=== PATIENT | female | born 1975 | race Caucasian/White ===

== ENCOUNTER 2019-10-17 09:57 | Emergency (ER) | payer OTHER, SELFPAY ==
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
[2019-10-17 10:10] VITALS: BP 117/75; PULSE 74; RESP 14; TEMP 36.6; O2SAT 99
--- NOTE | 2019-10-17 10:27 | ED.WOUNDLAC ---
HPI - Wound/Laceration General Chief Complaint: Wound/Laceration Stated Complaint: 44YO female w/ left hand puncture wound while she was cleaning, she accidentally stuck herself. Here for eval. Related Data Home Medications Medication Instructions Recorded Confirmed No Home Medications 05/09/19 05/09/19 Allergies Allergy/AdvReac Type Severity Reaction Status Date / Time No Known Allergies Allergy Verified 05/09/19 11:26 Review of Systems Review of Systems: All systems reviewed & are unremarkable except as noted in HPI and below Constitutional: Constitutional: Reports as per HPI Cardiovascular: Cardiovascular: Reports as per HPI and Reports no additional cardiovascular complaints Respiratory: Respiratory: Reports as per HPI and Reports no additional respiratory complaints Gastrointestinal: Gastrointestinal: Reports as per HPI and Reports no additional gastrointestinal complaints Musculoskeletal: Musculoskeletal: Reports no additional musculoskeletal complaints and Reports as per HPI Integumentary/Breasts: Skin/Breast: Reports as per HPI Neurologic: Reports system reviewed and no additional complaints, except as documented Psychiatric: Psychiatric: Reports no additional psychiatric complaints [facility] Past Medical History Medical History Chronic back pain Migraines Exam Resp: Effort & Inspection: normal respiratory effort Auscultation: clear to auscultation bilaterally Cardio: Rate: regular rate Rhythm: regular rhythm GI: GI Palp: Yes Soft to palpation and No Tenderness to palpation present (GI) Skin: Wounds: wounds noted (Left Hand puncture wound) puncture wound left dorsal thumb size (1/2cm) and without odor Neuro: General: patient oriented x3, moves all extremities, no focal motor deficits and CN's II-XI intact bilaterally Extrem: General: normal to inspection Other: From to flexion, extension, opposition, adduction and abduction of all fingers Psych: Mental Status: mental status grossly normal Course Course Emergency Course: Dermabond to Puncture wound Vital Signs Vital signs: Vital Signs Temperature 97.8 F 10/17/19 10:10 Pulse Rate 74 10/17/19 10:10 Respiratory Rate 10/17/19 10:10 Blood Pressure 117/75 10/17/19 10:10 Pulse Oximetry 99 10/17/19 10:10 Temperature 97.8 F 10/17/19 10:10 Pulse Rate 74 10/17/19 10:10 Respiratory Rate 14 10/17/19 10:10 Blood Pressure 117/75 10/17/19 10:10 Pulse Oximetry 99 10/17/19 10:10 Procedures Laceration Laceration 1: Date: 10/17/19 Time: 10:33 Site: hand Side (If applicable): left Size (cm): 0.5 Description: linear Depth: simple, single layer ====== Skin Level ====== Skin layer closed with: dermabond ====== Subcutaneous Layer ====== ====== Muscle Layer ====== ====== Tendon Layer ====== MDM - Wound/Laceration Differential Diagnosis Differential diagnosis: Likely laceration Medical Records Attestation: I reviewed the patient's medical records. Critical Care Time Critical Care Time Critical Care Time: No Discharge Plan Discharge Clinical Impression: Puncture wound of left hand without complication Qualifiers: Encounter type: initial encounter Qualified Code(s): S61.432A - Puncture wound without foreign body of left hand, initial encounter Patient Disposition: Home, Self-Care Condition: Improved Instructions: Antibiotic Form, Puncture Wound (ED) Additional Instructions: Dermabond instructions explained to patient. No getting wound wet for 48 hours Prescriptions: No Action No Home Medications RF: 0 Follow-up/Referrals: UNKNOWN,DOCTOR [Primary Care Provider] - Time of Disposition: 10:35
== END 2019-10-17 11:03 | disposition home or self-care (01) ==
PROVIDERS: Emergency Provider Family Medicine
DX: S61.432A Puncture wound without foreign body of left hand, initial encounter (principal); W45.8XXA Other foreign body or object entering through skin, initial encounter
CPT/HCPCS: 12001; 99282

== ENCOUNTER 2019-10-19 02:02 | Emergency (ER) | payer OTHER, SELFPAY ==
[2019-10-19 02:08] VITALS: BP 113/78; PULSE 70; RESP 18; TEMP 36.3; O2SAT 99
--- NOTE | 2019-10-19 02:27 | ED.GENADULT ---
HPI - General Adult General Chief complaint: Allergic Reaction Stated complaint: Poss Allergic Reaction Source: patient Mode of arrival: ambulatory Limitations: no limitations History of Present Illness HPI narrative: Itching over entire body, onset 9 PM yesterday (6 hours ago). Denies rash, swelling of lips/tongue/throat, nausea/vomiting/abd. pain, lightheadedness. Started cephalexin 7/4 AM after puncture wound to the left hand. See note. C/o tenderness near puncture sight, not worsening. Related Data Home Medications Medication Instructions Recorded Confirmed diclofenac potassium 25 mg PO BID PRN 10/17/19 10/19/19 Allergies Allergy/AdvReac Type Severity Reaction Status Date / Time cephalexin Allergy Itching Verified 10/19/19 02:23 Review of Systems Constitutional: Constitutional: Denies chills and Denies fever(s) [facility] Past Medical History Medical History Chronic back pain Migraines Exam Narrative: Exam Narrative: Frequent scratching all over her body Const: Orientation/consciousness: patient oriented x3 Eyes: Conjunctivae: conjunctivae normal Resp: Auscultation: clear to auscultation bilaterally Skin: Rashes: no rashes Other: no excoriations Extrem: General: normal to inspection Left upper extremity: hand tenderness (left thumb-index web space. ) and puncture wound (puncture wound left posterior lateral hand. Tender. Not red. No d.c.) Psych: Mental Status: mental status grossly normal Course Course Emergency Course: pt felt improvement within minutes of receiving diphenhydramine and prednisone Vital Signs Vital signs: Vital Signs Temperature 36.3 C L 10/19/19 02:08 Pulse Rate 70 10/19/19 02:08 Respiratory Rate 18 10/19/19 02:08 Blood Pressure 113/78 10/19/19 02:08 Pulse Oximetry 99 10/19/19 02:08 Temperature 36.6 C 10/19/19 03:00 Pulse Rate 57 L 10/19/19 03:00 Respiratory Rate 18 10/19/19 03:00 Blood Pressure 111/71 10/19/19 03:00 Pulse Oximetry 100 10/19/19 03:00 Medical Decision Making MDM Narrative Medical decision making narrative: Adverse reaction - itching - to cephalexin. No evidence of allergic reaction. No evidence of hand infection secondary to puncture wound. Stop cephalexin, start clindamycin x 2 days in order to get 5 days of hand wound infection prophylaxis. Vital Signs Vital Signs: Vital Signs Temperature 36.3 C L 10/19/19 02:08 Pulse Rate 70 10/19/19 02:08 Respiratory Rate 18 10/19/19 02:08 Blood Pressure 113/78 10/19/19 02:08 Pulse Oximetry 99 10/19/19 02:08 Temperature 36.6 C 10/19/19 03:00 Pulse Rate 57 L 10/19/19 03:00 Respiratory Rate 18 10/19/19 03:00 Blood Pressure 111/71 10/19/19 03:00 Pulse Oximetry 100 10/19/19 03:00 Discharge Plan Discharge Clinical Impression: Pruritus Adverse effect of drug that acts primarily on skin Qualifiers: Encounter type: initial encounter Qualified Code(s): T49.95XA - Adverse effect of unspecified topical agent, initial encounter Patient Disposition: Home, Self-Care Condition: Stable Instructions: Antibiotic Form, Adverse Drug Reaction (ED) Additional Instructions: Stop cephalexin. Take clindamycin as directed on bottle until gone. Take hydroxyzine 10 mg 1 - 2 every 6 hours if needed for itching. Follow up with primary care doctor to recheck rash and left hand 10/20/19 with primary care doctor. Blow fan on skin or apply wet cool washcloth to itching skin as needed. Prescriptions: New clindamycin HCl 300 mg capsule 300 mg PO Q6H Qty: 6 RF: 0 hydroxyzine HCl 10 mg tablet 20 mg PO QID PRN (Reason: itching) Qty: 20 RF: 0 clindamycin HCl 300 mg capsule 300 mg PO Q6H Qty: 8 RF: 0 No Action diclofenac potassium 25 mg Capsule 25 mg PO BID PRN (Reason: Back Pain) RF: 0 cephalexin [Keflex] 500 mg capsule 500 mg PO Q8H Qty: 30 RF: 0 Follow-up/Ref
[2019-10-19] MEDS: CLINDAMYCIN HCL 150 MG CAP 300 MG PO (02:58)
[2019-10-19] MEDS: predniSONE 20 MG TABLET 40 MG PO (02:59)
[2019-10-19 03:00] VITALS: BP 111/71; PULSE 57; RESP 18; TEMP 36.6; O2SAT 100
== END 2019-10-19 03:05 | disposition home or self-care (01) ==
PROVIDERS: Emergency Provider Family Medicine
DX: L29.9 Pruritus, unspecified (principal); T49.95XA Adverse effect of unspecified topical agent, initial encounter
CPT/HCPCS: 99283; A9270; J7512

== ENCOUNTER 2020-09-27 07:39 | Outpatient (CLI) | payer OTHER, SELFPAY ==
--- NOTE | ~2020-09-27 | MR_ITS ---
EXAMINATION: MR lumbar spine wo [facility] EXAM DATE: 09/27/2020 09:03 INDICATION: Low back pain, bilateral foot swelling. TECHNIQUE: Multi-sequential, multiplanar MR images of the lumbar spine were obtained without contrast . Sagittal T1, T2, T2 fat saturation images. Axial T2 weighted images. There is no prior study for comparison. FINDINGS: Mild lumbar levoscoliosis. There is mild disc disease L2-3 and L4-5. The vertebral bodies a re aligned in the AP dimension. No spondylolysis. The conus medullaris terminates at the L1/2 level a nd has normal signal intensity and morphology. There are several small vertebral body hemangiomas. P araspinal soft tissue is unremarkable. Level by level evaluation: T12-L1: Disc does not extend beyond the endplate margin. Facet arthropathy: None. Neural foraminal stenosis: No stenosis. Central canal stenosis: No stenosis. L1-L2: Disc does not extend beyond the endplate margin. Facet arthropathy: None. Neural foraminal stenosis: No stenosis. Central canal stenosis: No stenosis. L2-L3: There is a mild diffuse disc bulge. Facet arthropathy: Mild. Neural foraminal stenosis: No stenosis. Central canal stenosis: No stenosis. L3-L4: Disc does not extend beyond the endplate margin. Facet arthropathy: Mild. Neural foraminal stenosis: No stenosis. Central canal stenosis: No stenosis. L4-L5: There is a mild to moderate diffuse disc bulge, far left annular fissure. Facet arthropathy: Mild. Neural foraminal stenosis: Mild to moderate bilateral, with left nerve root extending through the mos t narrowed portion of neural foramina. Central canal stenosis: Minimal. L5-S1: Disc does not extend beyond the endplate margin. Facet arthropathy: Mild. Neural foraminal stenosis: No stenosis. Central canal stenosis: No stenosis. IMPRESSION: 1. Mild lumbar levoscoliosis. 2. L4-5 mild to moderate neural foraminal stenosis. Reviewed, dictated and finalized at location B.
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
--- NOTE | ~2020-09-27 | MR_ITS ---
EXAMINATION: MR cervical spine wo con EXAM DATE: 09/27/2020 09:02 INDICATION: Cervical radiculopathy, neck pain, limited range of motion. TECHNIQUE: Multi-sequential, multiplanar MR images of the cervical spine were obtained without contra st. Axial T2, axial T2 MERGE sequence. Sagittal T1, T2, T2 fat saturation images also obtained. Th ere is no prior study for comparison. FINDINGS: The vertebral bodies are aligned in the AP dimension. Vertebral body and disc heights are well-maintained. The spinal cord signal intensity and intrinsic morphology is normal. Cervicomedullar y junction is normal in appearance. There are no suspicious marrow signal abnormalities. Paraspinal s oft tissue is unremarkable. Level by level evaluation: C2-C3: Disc does not extend beyond the endplate margin. Uncovertebral joint arthropathy: None. Facet joint arthropathy: None. Neural foraminal stenosis: No stenosis. Central canal stenosis: No stenosis. C3-C4: Disc does not extend beyond the endplate margin. Uncovertebral joint arthropathy: None. Facet joint arthropathy: Mild. Neural foraminal stenosis: No stenosis. Central canal stenosis: No stenosis. C4-C5: Disc does not extend beyond the endplate margin. Uncovertebral joint arthropathy: Mild left. Facet joint arthropathy: Mild bilateral. Neural foraminal stenosis: No stenosis. Central canal stenosis: No stenosis. C5-C6: There is a minimal diffuse disc bulge. Uncovertebral joint arthropathy: Mild bilateral. Facet joint arthropathy: Mild bilateral. Neural foraminal stenosis: No stenosis. Central canal stenosis: No stenosis. C6-C7: Disc does not extend beyond the endplate margin. Uncovertebral joint arthropathy: None. Facet joint arthropathy: None. Neural foraminal stenosis: No stenosis. Central canal stenosis: No stenosis. C7-T1: Disc does not extend beyond the endplate margin. Uncovertebral joint arthropathy: None. Facet joint arthropathy: None. Neural foraminal stenosis: No stenosis. Central canal stenosis: No stenosis. IMPRESSION: 1. Mild mid cervical spondylosis without stenosis. Reviewed, dictated and finalized at location B.
== END 2020-09-27 07:40 ==
PROVIDERS: Visit Provider Nurse Practitioner Family
DX: M47.816 Spondylosis without myelopathy or radiculopathy, lumbar region (principal); M48.061 Spinal stenosis, lumbar region without neurogenic claudication; M41.9 Scoliosis, unspecified; M47.22 Other spondylosis with radiculopathy, cervical region; M48.02 Spinal stenosis, cervical region; R51.9 Headache, unspecified
CPT/HCPCS: 70551; 72141; 72148

== ENCOUNTER 2022-06-13 03:22 | Emergency (ER) | payer SELFPAY ==
--- NOTE | ~2022-06-13 | CT_ITS ---
Non-contrast CT scan of the Abdomen and Pelvis Clinical indication: Abdominal pain Technique: 2.5 mm axial scans were obtained through the abdomen and pelvis without intravenous or or al contrast. Dose reduction technique was used on this scan by utilizing automated exposure control a nd iterative reconstruction technique. The dose-length product (DLP) was 204.06 mGy-cm. COMPARISON: 11/30/2015 Findings: Images through the lung bases reveal no abnormalities. There is no evidence of renal or ureteral calculi. The kidneys and the ureters are nondilated. The liver, spleen, pancreas, gallbladder, and adrenals appear normal. There is no aortic aneurysm. There is no evidence of bowel obstruction. Images through the pelvis were performed. There is no evidence of ascites or lymphadenopathy. Urinary bladder unremarkable. No adnexal mass evident. No ascites. Impression: No significant abnormality seen. Reviewed, dictated and finalized at [facility]. CLEANER Impression: No significant abnormality seen.
[2022-06-13 03:27] VITALS: BP 149/86; PULSE 60; RESP 20; TEMP 36.8; O2SAT 100
[2022-06-13 03:50] LABS: Basophils Absolute Auto 0.08 K/mm3 (0.00-0.10); Basophils Percent Auto 0.9 % (0.0-1.0); Eosinophils Absolute Auto 0.22 K/mm3 (0.02-0.50); Eosinophils Percent Auto 2.5 % (1.0-6.0); Hematocrit 41.5 % (35.0-49.0); Hemoglobin 14.1 g/dL (12.0-15.0); Immature Granulocyte Absolute 0.02 K/mm3 (0.00-0.00); Immature Granulocyte Percent A 0.2 % (0.0-0.0); Lymphocytes Absolute Auto 2.43 K/mm3 (1.10-4.50); Lymphocytes Percent Auto 27.5 % (18.0-42.0); Mean Corpuscular Hemoglobin 33.3 pg (27.0-31.0); Mean Corpuscular Volume 97.9 fL (78.0-102.0); Mean Platelet Volume 9.9 fl (9.2-11.8); Monocytes Absolute Auto 0.57 K/mm3 (0.10-0.90); Monocytes Percent Auto 6.5 % (2.0-11.0); Neutrophils Absolute Auto 5.5 K/mm3 (1.7-7.2); Neutrophils Percent Auto 62.4 % (50.0-70.0); Platelet Count Result 274 K/mm3 (150-420); Red Blood Count 4.24 M/mm3 (4.20-5.40); Red Cell Distribution Width 11.6 % (11.6-14.4); White Blood Count 8.8 K/mm3 (4.8-10.8)
[2022-06-13 03:51] LABS: Appearance Urine Clear (Clear); Bilirubin Urine Negative (Negative); Blood Urine Trace-Intact (Negative); Color Urine Light Yellow (Yellow); Glucose Urine UA Negative (Negative); Ketones Urine Negative (Negative); Leukocyte Esterase Ur Trace LEU/UL (Negative); Nitrate Urine Negative (Negative); Protein Urine Negative (Negative); Specific Grav Ur >= 1.030 (1.010-1.020); Urobilinogen Urine 0.2 mg/dL (0.2-1.0); pH Urine 5.5 (5.0-8.0)
[2022-06-13 03:57] LABS: Add Urine Microscopic? YES
[2022-06-13 03:58] LABS: Bacteria Urine 1+ /hpf; Pregnancy On Board Control Positive; Squamous Epithelial Cell Urine Many /hpf (Few); Urine Pregnancy Test Negative; WBC Urine 0-3 /hpf (0-3)
[2022-06-13 04:08] LABS: Alanine Aminotransferase 33 U/L (14-59); Albumin Level 3.9 g/dL (3.4-5.0); Alkaline Phosphatase 43 U/L (46-116); Anion Gap 9 mmol/L (8-16); Aspartate Amino Transferase 33 U/L (15-37); Bilirubin,Total 0.2 mg/dL (0.00-1.00); Blood Urea Nitrogen 15 mg/dL (7-18); Calcium 8.9 mg/dL (8.5-10.1); Carbon Dioxide 26 mmol/L (21-32); Chloride 104 mmol/L (98-108); Estimated CRCL calculation 57 ml/min; Estimated Glomerular Filt Rate > 60; Glucose 93 mg/dL (70-99); Osmolality Calculated 288 mOsm/kg (285-295); Sodium 139 mmol/L (136-145); Total Protein 7.6 g/dL (6.4-8.2)
--- NOTE | 2022-06-13 04:42 | PC.NURSE ---
Pt sleeping, awaiting CT scan results, no pain noted, resting comfortably, TV on, call hassan at pt side.
--- NOTE | 2022-06-13 05:15 | ED.ABDPAIN ---
HPI - Abdominal Pain General Chief Complaint: Abdominal Pain Stated Complaint: Abdominal Pain Time Seen by Provider: 06/13/22 05:15 Source: patient and RN notes reviewed Mode of arrival: ambulatory Limitations: no limitations History of Present Illness HPI narrative: patient states that she has been using laxatives on all for the last 10 years. The last 3 weeks she has been having some abdominal pain. It is intermittent she has been taking laxatives but they do not seem to be working. She said she took 3 laxatives the other day and feels like maybe she had some bowel movement but she still having pain. She has tried MiraLax in the past but she does not like the flavor. Makes her nauseous and then she will not take it. She denies any fever chills. She denies any nausea vomiting. She says she is just tired of the pain. MD elicited complaint: abdominal pain Pertinent past history: constipation Onset (ago): month(s) (3) Pain Consistency: intermittent Location: diffuse Severity: moderate Quality: cramping Radiation: none Migration to: no migration Exacerbating factors: eating Relieving factors: nothing Related Data Allergies Allergy/AdvReac Type Severity Reaction Status Date / Time cephalexin Allergy Itching Verified 10/19/19 02:23 Review of Systems Review of Systems: All systems reviewed & are unremarkable except as noted in HPI and below PMFSH Past Medical History Medical History (Updated 06/13/22 @ 05:36 by Radhames Waterman MD) Chronic back pain Migraines Surgical History Surgical History (Updated 06/13/22 @ 05:33 by Radhames Waterman MD) History of appendectomy Exam Const: General: healthy appearing, no acute distress and alert Nutritional Appearance: well nourished and thin Orientation/consciousness: patient oriented x3 Limitations: no limitations HENMT: Head: normal to inspection Ears: external ears normal Face/Nose/Sinus: Normal external nose present Face and sinus: normal facial exam Mouth: Yes moist mucous membranes Eyes: Conjunctivae: conjunctivae normal Pupils: Equal, round and reactive pupils present EOM: EOMs intact bilaterally Neck: Neck: normal visual inspection Resp: Effort & Inspection: normal respiratory effort Auscultation: clear to auscultation bilaterally Cardio: Rate: regular rate Rhythm: regular rhythm GI: GI Palp: Yes Soft to palpation, Yes Tenderness to palpation present (GI) ( Moderate diffusely.), Yes Guarding due to palpation present (GI) ( Mild diffusely) and No Rebound tenderness present Auscultation: normal bowel sounds Back/Spine/Pelvis: Cervical Spine: cervical ROM normal Thoracic/Lumbar Spine: thoraco-lumbar ROM normal Skin: General skin exam: normal color Rashes: no rashes Neuro: General: patient oriented x3, moves all extremities, no focal motor deficits and CN's II-XI intact bilaterally Speech: normal speech Gait exam (Neuro): Normal gait present Extrem: General: normal to inspection and no clubbing, cyanosis or edema Psych: Mental Status: mental status grossly normal Affect: normal affect Attitude: cooperative Course Vital Signs Vital signs: Vital Signs Temperature 36.8 C 06/13/22 03:27 Pulse Rate 60 06/13/22 03:27 Respiratory Rate 20 06/13/22 03:27 Blood Pressure 149/86 H 06/13/22 03:27 Pulse Oximetry 100 06/13/22 03:27 Oxygen Delivery Room Air 06/13/22 03:27 Temperature 36.6 C 06/13/22 05:44 Pulse Rate 87 06/13/22 05:44 Respiratory Rate 20 06/13/22 05:44 Blood Pressure 132/74 06/13/22 05:44 Pulse Oximetry 98 06/13/22 05:44 Oxygen Delivery Room Air 06/13/22 05:44 MDM - Abdominal Pain MDM Narrative Medical decision making narrative: 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 Differential Diagnosis Differential diagnosis: Likely abdominal pain, calculus of kidney, constipation, diverticulitis, gastroenteritis, small bowel obstruction and other (IBS) Lab Data
--- NOTE | 2022-06-13 05:24 | PC.NURSE ---
Assisted dr with pt exam
[2022-06-13 05:44] VITALS: BP 132/74; PULSE 87; RESP 20; TEMP 36.6; O2SAT 98
== END 2022-06-13 05:47 | disposition home or self-care (01) ==
PROVIDERS: Emergency Provider Emergency Medicine
DX: K59.03 Drug induced constipation (principal); F55.2 Abuse of laxatives
CPT/HCPCS: 36415; 74176; 80053; 81001; 81025; 85025; 99284

== ENCOUNTER 2023-06-23 21:42 | Emergency (ER) | payer OTHER, SELFPAY ==
--- NOTE | ~2023-06-23 | CT_ITS ---
EXAMINATION: CT cervical spine wo con DATE: 06/23/2023 21:57 INDICATION: Neck pain. TECHNIQUE: Computed tomography (CT) of the cervical spine was performed without intravenous contrast. Automated exposure control and iterative reconstruction technique were employed. The dose-length pro duct was 128.11 mGy-cm. COMPARISON: None FINDINGS: There is 4 degrees dextrocurvature of cervical spine. Vertebral body heights and interverte bral disc heights are normal. The following disc levels are specifically discussed: C2-C3 through C6-C7: There is no uncovertebral joint osteoarthritis. There is no facet joint osteoart hritis. There is no neural foraminal stenosis. There is no central canal stenosis. C7-T1: There is no uncovertebral joint osteoarthritis. There is mild bilateral facet joint osteoarthr itis. There is no neural foraminal stenosis. There is no central canal stenosis. IMPRESSION: 1. 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 Reviewed, dictated and finalized at location E.
[2023-06-23 21:49] VITALS: BP 153/98; PULSE 113; RESP 20; TEMP 36.6; O2SAT 98
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
[2023-06-23] MEDS: KETOROLAC 30 MG/ML VIAL (*BKC) IM (22:00)
[2023-06-23] MEDS: CYCLOBENZAPRINE HCL 10 MG TABLET PO (22:00)
[2023-06-23 22:42] VITALS: BP 128/83; PULSE 83; RESP 20; TEMP 37.5; O2SAT 100
== END 2023-06-23 22:42 | disposition home or self-care (01) ==
PROVIDERS: Emergency Provider Family Medicine
DX: M62.830 Muscle spasm of back (principal); G89.29 Other chronic pain
CPT/HCPCS: 72125; 96372; 99284; A9270; J1885

== ENCOUNTER 2024-11-07 08:50 | Emergency (ER) | payer OTHER, SELFPAY ==
[2024-11-07 08:50] VITALS: BP 143/86; PULSE 74; RESP 14; TEMP 36.9; O2SAT 99
--- OUTSIDE RECORDS SUMMARY | 2024-11-07 08:58 | XMS_ITS | Clinical Summary ---
Author Organization [facility] Address [address] [place] [address] Phone Care Team Providers Care Stockroom Worker Name Role Phone Susan Huffman APRN, HUNTER Primary Care P rojacielder Allergies Active Allergy Reactions Criticality Noted Date Comments Penicillin G Unknown 04/02/2019 Medications diclofenac (VOLTAREN) 50 MG Tablet Delayed Response Take 1 Tab by mouth 3 times daily. 270 Tab 9 Active Additional Information Patient not taking.Reported on 04/17/2019 propranolol (INDERAL) 40 MG Tablet 9 Active SUMAtriptan (IMITREX) 50 MG Tablet 9 Active meclizine (ANTIVERT) 25 MG Tablet Take 25 mg by mouth 3 times daily as needed. Active ondansetron (ZOFRAN-ODT) 4 MG TABLET DISPERSIBLE Take 4 mg by mouth every 8 hours as needed. Active topiramate (TOPAMAX) 25 MG Tablet Start 1 tab PO q am x 7 days, then 1 tab PO 2 times daily 120 Tab 3 0 Active Additional Information Patient not taking.Reported on 07/17/2019 ondansetron (ZOFRAN) 8 MG Tablet Take 1 Tab by mouth every 8 hours as needed for Nausea - 1st line. 30 Tab 0 Active Additional Information Patient not taking.Reported on 04/27/2020 methylPREDNISolo ne (MEDROL DOSPACK) 4 MG Tablet Therapy Pack See product package insert for dosing schedule 21 Tab 1 Active Active Problems Problem Noted Date Diagnosed Date Migraine with aura and with status migrainosus, not intractable 04/17/2019 Vertigo 04/17/2019 Family History Medical History Relation Name Comments Colon Cancer Brother Diabetes Brother Colon Cancer Paternal Grandmother Relation Name Status Comments Brother Paternal Grandmother Social History Tobacco Use Types Packs/Day Years Used Date Smoking Tobacco: Every Day Cigarettes Smokeless Tobacco: Never Tobacco Cessation:Ready to Q uit: No Alcohol Use Standard Drinks/Week Comments Not Currently 0 (1 standard drink = 0.6 oz pur e alcohol) Comments No Sex and Gender Information Value Date Recorded Sex Assigned at Not on file Legal Sex Female 12:37 AM CDT Gender Identity Not on file Sexual Orientation Not on file Last Filed Vital Signs Vital Sign Reading Time Taken Comments Blood Pressure 127/81 04/27/2020 4:15 AM RESIDENTIAL LAWN SPECIALIST Pulse 56 04/27/2020 4:29 AM RESIDENTIAL LAWN SPECIALIST Temperature 36.3 C (97.4 F) 04/27/2020 3:28 AM RESIDENTIAL LAWN SPECIALIST Respiratory Rate 16 04/27/2020 3:28 AM RESIDENTIAL LAWN SPECIALIST Oxygen Saturation 98% 04/27/2020 4:29 AM RESIDENTIAL LAWN SPECIALIST Inhaled Oxygen Concentration - - Weight 62.6 kg (138 lb) 04/27/2020 3:28 AM RESIDENTIAL LAWN SPECIALIST Height 160 cm (5' 3) 04/27/2020 3:28 AM RESIDENTIAL LAWN SPECIALIST Body Mass Index 24.45 04/27/2020 3:28 AM RESIDENTIAL LAWN SPECIALIST Plan of Treatment Health Maintenance Due Date Last Done Comments Hepatitis C Virus (HCV) Screening 1976 TdaP Immunization 1976 Hepatitis B Immunization (1 of 3 - 19+ 3-dose series) 07/09/1995 Pap Smear 1997 Cervical Cancer Screening (CCS) 2006 HPV/Cotest 2006 Cologuard 2021 Colonoscopy 2021 Colorectal Cancer Screening 2021 Immunochemical Fecal Occult Blood 2021 SARS-COV-2 Immunization (2023- season) 2023 Mammogram 11/05/2024 11/06/2023, 06/13, 06/11/2017 Influenza Immunization (#1) 2024 Respiratory Syncytial Virus (RSV) Immunization (Adult) (1 - 1-dose 75+ series) 07/09/2051 Discussion re Starting/Frequency of Mammograms Completed 04/10/2024, 11/06/2023, 06/27/2020, Additional history exists Human Papillomavirus (HPV) Immunization Aged Out No longer eligible based on patient's age to complete this topic Meningococcal Immunization (ACWY) Aged Out No longer eligible based on patient's age to complete this topic Pneumococcal Immunization Combined Aged Out No longer eligible based on patient's age to complete this topic Rotavirus Immunization Aged Out No lo nger eligible based on patient's age to complete this topic Procedures Procedure Name Priority Date/Time Associated Diagnosis Comments DANIE DIAG LEFT UNILATERAL DIGITAL W CAD W REGIS Routine 04/10/2024 8:44 AM RESIDENTIAL LAWN SPECIALIST Abnormal mammogram DANIE SCREENING BILATERAL DIGITAL W CAD W REGIS Routine 11/06/2023 8:41 AM CDT Visit for screening mammogram from Last 3 Months or Most Recently Relevant to Health Maintenance Results * DANIE DIAG LEFT UNILATERAL DIGITAL W CAD W REGIS (04/10/2024 8:44 AM RESIDENTIAL LAWN SPECIALIST) Anatomical Region Laterality Modality breast Left Mammography 04/10/2024 8:03 AM RESIDENTIAL LAWN SPECIALIST Narrative 04/10/2024 10:21 AM RESIDENTIAL LAWN SPECIALIST - DANIE DIAG LEFT UNILATERAL DIGITAL W CAD W REGIS UNILATERAL LEFT DIGITAL DIAGNOSTIC MAMMOGRAM 3D/2D WITH CAD WITH MEDIOLATERAL MEDIOLATERAL OBLIQUE CRANIOCAUDAL SPOT COMPRESSION: 04/10/2024 The study was acquired using digital technology and interpreted from soft copy. Current study was also evaluated with ICAD version 7.2. 2D digital mammographic views, as well as 3D digital tomosynthesis were performed in the CC and MLO projections. CLINICAL: Diagnostic study. Patient returns to evaluate an asymmetry in the left breast seen on the MLO view only; screening 11/06/23. COMPARISONS: Comparison is made to exams dated: 11/06/2023, 06/27/2020, and 06/11/2017 [facility]. BREAST TISSUE:The breasts are heterogeneously dense, which may obscure small masses. FINDINGS: No persistent asymmetry is seen in the subareolar left breast on the additional views. No significant masses, calcifications, or other findings are seen in the breast. IMPRESSION: NEGATIVE There is no mammographic evidence of malignancy. Return to annual screening mammography schedule is recommended. The patient will be due for a bilateral screening mammogram in October 2024. The results and recommendations were discussed with the patient. Electronically signed by: Mi Ortiz M.D. ll/:04/10/2024 08:43:52 Web Site Specialist(s): RT Robin(R)(M), [facility] letter sent: Normal Exam Reading location: [place] Mammogram BI-RADS: Category 1: Negative Procedure Note Mi Ortiz MD - 04/10/2024 - DANIE DIAG LEFT UNILATERAL DIGITAL W CAD W REGIS UNILATERAL LEFT DIGITAL DIAGNOSTIC MAMMOGRAM 3D/2D WITH CAD WITH MEDIOLATERAL MEDIOLATERAL OBLIQUE CRANIOCAUDAL SPOT COMPRESSION: 04/10/2024 The study was acquired using digital technology and interpreted from soft copy. Current study was also evaluated with Varon[employer] SystemsD version 7.2. 2D digital mammographic views, as well as 3D digital tomosynthesis were performed in the CC and MLO projections. CLINICAL: Diagnostic study. Patient returns to evaluate an asymmetry in the left breast seen on the MLO view only; screening 11/06/23. COMPARISONS: Comparison is made to exams dated: 11/06/2023, 06/27/2020, and 06/11/2017 [facility]. BREAST TISSUE:The breasts are heterogeneously dense, which may obscure small masses. FINDINGS: No persistent asymmetry is seen in the subareolar left breast on the additional views. No significant masses, calcifications, or other findings are seen in the breast. IMPRESSION: NEGATIVE There is no mammographic evidence of malignancy. Return to annual screening mammography schedule is recommended. The patient will be due for a bilateral screening mammogram in October 2024. The results and recommendations were discussed with the patient. Electronically signed by: Mi Ortiz M.D. ll/:04/10/2024 08:43:52 Web Site Specialist(s): RT Robin(R)(M), [facility] letter sent: Normal Exam Reading location: [place] Mammogram BI-RADS: Category 1: Negative us Susan Huffman SATURATOR OPERATOR, CORPORATE SECURITY OFFICER IMG MAMMO ORDER MICHAELA Final Result * DANIE SCREENING BILATERAL DIGITAL W CAD W REGIS (11/06/2023 8:41 AM CDT) Anatomical Region Laterality Modality breast Bilateral Mammography 11/06/2023 9:26 AM CDT Narrative 11/06/2023 2:42 PM CDT - DANIE SCREENING BILATERAL DIGITAL W CAD W REGIS BILATERAL DIGITAL SCREENING MAMMOGRAM 3D/2D WITH CAD WITH MEDIOLATERAL OBLIQUE CRANIOCAUDAL: 11/06/2023 The study was acquired using digital technology and interpreted from soft copy. Current study was also evaluated with [employer] version 7.2. 2D digital mammographic views, as well as 3D digital tomosynthesis were performed in the CC and MLO projections. CLINICAL: Routine screening. Patient has no complaints. She reports a 25 pound weight loss. No personal history of cancer. No family history of breast cancer. COMPARISONS: Comparison is made to exams dated: 06/27/2020, 06/11/2017, 10/25/2016 [facility], and 10/10/2016 [facility]. BREAST TISSUE:The tissue of both breasts is heterogeneously dense. This may lower the sensitivity of mammography. FINDINGS: There is an asymmetry in the left breast anterior depth central to the nipple seen on the mediolateral oblique view only. No other significant masses, calcifications, or other findings are seen in either breast. IMPRESSION: BI-RAD 0 ADDITIONAL IMAGING EVALUATION NEEDED The asymmetry in the left breast is indeterminate. Additional views with possible ultrasound are recommended. An immediate follow-up is recommended. A letter will be sent to the patient with these results. Electronically signed by: Nereyda person/barb:11/06/2023 11:38:22 Web Site Specialist(s): RT Lisa(Batool)(M), [facility] letter sent: Additional Imaging Reading location: [facility] BI-RADS: 0 Additional Imaging Evaluation Needed Procedure Note Nereyda Manrique MD - 11/06/2023 - DANIE SCREENING BILATERAL DIGITAL W CAD W REGIS BILATERAL DIGITAL SCREENING MAMMOGRAM 3D/2D WITH CAD WITH MEDIOLATERAL OBLIQUE CRANIOCAUDAL: 11/06/2023 The study was acquired using digital technology and interpreted from soft copy. Current study was also evaluated with ICAD version 7.2. 2D digital mammographic views, as well as 3D digital tomosynthesis were performed in the CC and MLO projections. CLINICAL: Routine screening. Patient has no complaints. She reports a 25 pound weight loss. No personal history of cancer. No family history of breast cancer. COMPARISONS: Comparison is made to exams dated: 06/27/2020, 06/11/2017, 10/25/2016 [facility], and 10/10/2016 [facility]. BREAST TISSUE:The tissue of both breasts is heterogeneously dense. This may lower the sensitivity of mammography. FINDINGS: There is an asymmetry in the left breast anterior depth central to the nipple seen on the mediolateral oblique view only. No other significant masses, calcifications, or other findings are seen in either breast. IMPRESSION: BI-RAD 0 ADDITIONAL IMAGING EVALUATION NEEDED The asymmetry in the left breast is indeterminate. Additional views with possible ultrasound are recommended. An immediate follow-up is recommended. A letter will be sent to the patient with these results. Electronically signed by: Nereyda Manrique M.D. ab/barb:11/06/2023 11:38:22 Web Site Specialist(s): RT Lisa(R)(M), [facility] letter sent: Additional Imaging Reading location: [facility] BI-RADS: 0 Additional Imaging Evaluation Needed Susan Huffman SATURATOR OPERATOR, CORPORATE SECURITY OFFICER IMG MAMMO ORDER MICHAELA Final Result from Last 3 Months or Most Recently Relevant to Health Maintenance Insurance [facility] Care Teams Stockroom Worker Relationship Specialty Start Date End Date Susan Huffman APRN, CORPORATE SECURITY OFFICER [address] [place] [address] PCP - General Advanced Practice Nurse 11/06/23
--- OUTSIDE RECORDS SUMMARY | 2024-11-07 08:58 | XMS_ITS | Referral Summary ---
Author Organization [facility] [address] Address [address] [place] [address] Care Team Providers Care Supervisor Throwing Department Name Role Phone No, Physician Primary Care Provider [phone] Allergies No known active allergies Medications No known medications Active Problems Problem Noted Date Diagnosed Date Cervicalgia 11/30/2020 Assessment & Plan (11/30/2020 4:03 PM CDT): Ms. Rich has cervicalgia which has gotten better for 3 weeks with prior injections. I do not see any pathology that is amenable to surgery. We discussed that treatment of axial spine pain without radicular symptoms or compression of the spinal cord has very poor results. I recommend continued conservative treatment. Low back pain, non-specific 11/30/2020 Assessment & Plan (11/30/2020 4:05 PM CDT): Ms. Rich has low back pain in the upper lumbar spine. She reports some intermittent right leg pain that does not seem radicular in nature and she is unable to describe the distribution of the pain. She has no compression of the nerve roots in the lumbar spine to explain the pathology. She has spondylosis at L4-5 without nerve compression. I do not have any surgery to offer her and would recommend continued conservative treatment. We will not set up a follow-up appointment. Social History Tobacco Use Types Packs/Day Years Used Date Smoking Tobacco: Every Day Cigarettes 1 30 Smokeless Tobacco: Former AUDIT-C Answer Date Recorded Q1: How often do you have a drink containing alc ohol? 2-4 times a month 11/30/2020 Q2: How many drinks containi ng alcohol do you have on a typical day when you are drinking? 3 or 4 11/30/2020 Q3: How often do you have si x or more drinks on one occasion? 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 on file Not on file Not on fi le Last Filed Vital Signs Vital Sign Reading Time Taken Comments Blood Pressure 109/77 11/30/2020 3:30 PM CDT Pulse 91 11/30/2020 3:30 PM CDT Temperature 36.8 C (98.2 F) 04/17/2020 10:15 AM DENTAL SECRETARY Respiratory Rate 17 04/17/2020 10:15 AM DENTAL SECRETARY Oxygen Saturation 99% 04/17/2020 10:15 AM DENTAL SECRETARY Inhaled Oxygen Concentration - - Weight 63 kg (139 lb) 11/30/2020 3:30 PM CDT Height 158.8 cm (5' 2.5) 11/30/2020 3:30 PM CDT Body Mass Index 25.02 11/30/2020 3:30 PM CDT Plan of Treatment Not on file Care Teams Supervisor Throwing Department Relationship Specialty Start Date End Date No, Physician PCP - General 04/17/20
--- OUTSIDE RECORDS SUMMARY | 2024-11-07 08:58 | XMS_ITS | Clinical Summary ---
Author Organization [facility] [place] [address] [place] [address] Care Team Providers Care Commis Chef Name Role Phone No, Physician Primary Care Provider [phone] Allergies No known active allergies Medications No [...] will not set up a follow-up appointment. 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 on file Not on file Not on fi le Obstetrics History Last Filed Vital Signs Vital Sign Reading Time Taken Comments Blood Pressure 109/77 11/30/2020 3:30 PM CDT Pulse 91 11/30/2020 3:30 PM CDT Temperature 36.8 C (98.2 F) 04/17/2020 10:15 AM SELF PROPELLED DREDGE OPERATOR Respiratory Rate 17 04/17/2020 10:15 AM SELF PROPELLED DREDGE OPERATOR Oxygen Saturation 99% 04/17/2020 10:15 AM SELF PROPELLED DREDGE OPERATOR Inhaled Oxygen Concentration - - Weight 63 kg (139 lb) 11/30/2020 3:30 PM CDT Height 158.8 cm (5' 2.5) 11/30/2020 3:30 PM CDT Body Mass Index 25.02 11/30/2020 3:30 PM CDT Plan of Treatment Not on file Care Teams Commis Chef Relationship Specialty Start Date End Date No, Physician PCP - General 04/17/20
--- NOTE | 2024-11-07 09:03 | ED_ITS ---
HPI - Wound/Laceration General Chief Complaint: Wound/Laceration Stated Complaint: right thumb laceration Time Seen by Provider: 11/07/24 09:03 Source: patient Mode of arrival: ambulatory Limitations: no limitations History of Present Illness HPI narrative: 49-year-old a history of chronic low migraine presents to the ED with -- skin tear on the back of her right thumb while washing a glass which broke. This happened yesterday evening. No other injuries noted. Had a tetanus shot 7 years ago. The patient refused a tetanus shot. Onset (ago): hour(s) ( 12 hours ago) Extremity Location: Right: hand Body four view annotation: 2 1. V shaped red skin tear on the back of her right thumb Place: home Patient tetanus UTD: No Context: accidental Associated symptoms: none Related Data Allergies Allergy/AdvReac Type Severity Reaction Status Date / Time cephalexin Allergy Itching Verified 11/07/24 09:00 Review of Systems 2 Review of Systems: All systems reviewed & are unremarkable except as noted in HPI and below PMFSH Past Medical History Medical History Migraines Chronic back pain Surgical History Surgical History History of appendectomy Exam 2 Narrative: vitals are stable Const: General: no acute distress Orientation/consciousness: patient oriented x3 Limitations: no limitations HENMT: Head: normal to inspection Ears: external ears normal F alyson/Nose/Sinus: Normal external nose present Face and sinus: normal facial exam Mouth: Yes Normal oral and palatal mucosa present Throat: posterior oropharynx normal Eyes: Conjunctivae: conjunctivae normal Pupils: Equal, round and reactive pupils present EOM: EOMs intact bilaterally Direct Ophthalmoscopy: no photophobia Neck: Neck: normal visual inspection, no lymphadenopathy and no meningeal signs Chest: Chest palpation & inspection: normal inspection of the chest Resp: Effort & Inspection: normal respiratory effort Auscultation: clear to auscultation bilaterally Cardio: Rate: regular rate Rhythm: regular rhythm GI: GI Palp: Yes Soft to palpation Auscultation: normal bowel sounds O ther: /rigidity/rebound. Back/Spine/Pelvis: Back: no CVA tenderness Skin: General skin exam: normal color Other: V shaped laceration measuring 1 cm on the back of her right thumb. distal neurovascular bundle is intact. Neuro: General: patient oriented x3, moves all extremities, no meningeal signs, no focal motor deficits and CN's II-XI intact bilaterally Cranial nerves: Yes Nystagmus not present Speech: normal speech Gait exam (Neuro): Normal gait present Extrem: General: normal to inspection and no clubbing, cyanosis or edema Psych: Mental Status: mental status grossly normal Affect: normal affect Attitude: cooperative Course Course Emergency Course: hand laceration on the back of her right thumb-- Dermabond placed over the laceration. advised to monitor for infection. Vital Signs Vital signs: Vital Signs Temperature 36.9 C 11/07/24 08:50 Pulse Rate 74 11/07/24 08:50 Respiratory Rate 14 11/07/24 08:50 Blood Pressure 143/86 H 11/07/24 08:50 Pulse Oximetry 99 11/07/24 08:50 Oxygen Delivery Room Air 11/07/24 08:50 Temperature 36.9 C 11/07/24 08:50 Pulse Rate 74 11/07/24 08:50 Respiratory Rate 14 11/07/24 08:50 Blood Pressure 143/86 H 11/07/24 08:50 Pulse Oximetry 99 11/07/24 08:50 Oxygen Delivery Room Air 11/07/24 08:50 Procedures Laceration Laceration 1: Date: 11/07/24 Time: 09:13 Site: upper extremity Size (cm): 1 Description: irregular Depth: simple, single layer ====== Skin Level ====== Skin layer closed with: dermabond ====== Subcutaneous Layer ====== ====== Muscle Layer ====== ====== Tendon Layer ====== MDM - Wound/Laceration MDM Narrative Medical decision making narrative: Hand laceration Differential Diagnosis Differential diagnosis: Likely abrasion Discharge Plan Discharge Clinical Impression: Hand laceration Qualifiers: Encounter type: initial encounter Foreign body presence: without foreign body L aterality: right Qualified Code(s): S61.411A - Laceration without foreign body of right hand, initial encounter Patient Disposition: Home Condition: Stable Instructions: Antibiotic Form, Skin Adhesive Care (ED) Patient Language: Lithuanian Prescriptions: No Action Linzess 290 mcg capsule 290 mcg PO DAILY Qty: 14 0RF cyclobenzaprine 10 mg tablet 10 mg PO TID PRN (Reason: muscle spasm) Qty: 30 0RF cyclobenzaprine 10 mg tablet 10 mg PO TID PRN (Reason: muscle spasm) Qty: 30 0RF Follow-up/Referrals: Nathanael,Susan Greenfield APRN [Primary Care Provider] - Time of Disposition: 09:14
--- OUTSIDE RECORDS SUMMARY | 2024-11-07 09:28 | XMS_ITS | Referral Summary ---
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 Not on file Not on file Not on fi le Last Filed Vital Signs Vital Sign Reading Time Taken Comments Blood Pressure 109/77 11/30/2020 3:30 PM CDT Pulse 91 11/30/2020 3:30 PM CDT Temperature 36.8 C (98.2 F) 04/17/2020 10:15 AM ENTRY LEVEL ELECTRICIAN Respiratory Rate 17 04/17/2020 10:15 AM ENTRY LEVEL ELECTRICIAN Oxygen Saturation 99% 04/17/2020 10:15 AM ENTRY LEVEL ELECTRICIAN Inhaled Oxygen Concentration - - Weight 63 kg (139 lb) 11/30/2020 3:30 PM CDT Height 158.8 cm (5' 2.5) 11/30/2020 3:30 PM CDT Body Mass Index 25.02 11/30/2020 3:30 PM CDT Plan of Treatment Not on file Care Teams Breading Machine Tender Relationship Specialty Start Date End Date No, Physician PCP - General 04/17/20
--- OUTSIDE RECORDS SUMMARY | 2024-11-07 09:28 | XMS_ITS | Clinical Summary ---
Author Organization [facility] Address [address] [place] [address] Phone Care Team Providers Care High Tension Tester Name Role Phone Susan Huffman APRN, HUNTER [...] Comments Blood Pressure 127/81 04/27/2020 4:15 AM VIDEO PRODUCTION SPECIALIST Pulse 56 04/27/2020 4:29 AM VIDEO PRODUCTION SPECIALIST Temperature 36.3 C (97.4 F) 04/27/2020 3:28 AM VIDEO PRODUCTION SPECIALIST Respiratory Rate 16 04/27/2020 3:28 AM VIDEO PRODUCTION SPECIALIST Oxygen Saturation 98% 04/27/2020 4:29 AM VIDEO PRODUCTION SPECIALIST Inhaled Oxygen Concentration - - Weight 62.6 kg (138 lb) 04/27/2020 3:28 AM VIDEO PRODUCTION SPECIALIST Height 160 cm (5' 3) 04/27/2020 3:28 AM VIDEO PRODUCTION SPECIALIST Body Mass Index 24.45 04/27/2020 3:28 AM VIDEO PRODUCTION SPECIALIST Plan of Treatment Health Maintenance Due [...] CAD W REGIS Routine 04/10/2024 8:44 AM VIDEO PRODUCTION SPECIALIST Abnormal mammogram DANIE SCREENING BILATERAL DIGITAL W CAD W REGIS Routine 11/06/2023 8:41 AM CDT Visit for screening mammogram from Last 3 Months or Most Recently Relevant to Health Maintenance Results * DANIE DIAG LEFT UNILATERAL DIGITAL W CAD W REGIS (04/10/2024 8:44 AM VIDEO PRODUCTION SPECIALIST) Anatomical Region Laterality Modality breast Left Mammography 04/10/2024 8:03 AM VIDEO PRODUCTION SPECIALIST Narrative 04/10/2024 10:21 AM VIDEO PRODUCTION SPECIALIST - DANIE DIAG LEFT UNILATERAL DIGITAL [...] exams dated: 11/06/2023, 06/27/2020, and 06/11/2017 [facility]. BREAST TISSUE:The breasts are heterogeneously dense, [...] signed by: Mi Ortiz M.D. ll/:04/10/2024 08:43:52 Director Of Market Analysis(s): RT Robin(R)(M), [facility] letter sent: Normal Exam Reading location: [place] Mammogram BI-RADS: Category 1: Negative Procedure Note Mi Ortiz MD - 04/10/2024 - DANIE DIAG LEFT UNILATERAL DIGITAL W CAD W REGIS UNILATERAL LEFT DIGITAL DIAGNOSTIC MAMMOGRAM 3D/2D WITH CAD WITH MEDIOLATERAL MEDIOLATERAL OBLIQUE CRANIOCAUDAL SPOT COMPRESSION: 04/10/2024 The study was acquired using digital technology and interpreted from soft copy. Current study was also evaluated with Diagnostic PhotonicsD version 7.2. 2D digital mammographic views, as well as 3D digital tomosynthesis were performed in the CC and MLO projections. CLINICAL: Diagnostic study. Patient returns to evaluate an asymmetry in the left breast seen on the MLO view only; screening 11/06/23. COMPARISONS: Comparison is made to exams dated: 11/06/2023, 06/27/2020, and 06/11/2017 [facility]. BREAST TISSUE:The breasts are heterogeneously dense, which [...] signed by: Mi Ortiz M.D. ll/:04/10/2024 08:43:52 Director Of Market Analysis(s): RT Robin(R)(M), [facility] letter sent: Normal Exam Reading location: [place] Mammogram BI-RADS: Category 1: Negative us Susan Huffman BELL HOLE DIGGER, AERONAUTICAL DESIGN ENGINEER IMG MAMMO ORDER MICHAELA Final Result * [...] copy. Current study was also evaluated with Diagnostic PhotonicsD version 7.2. 2D digital mammographic views, as well as 3D digital tomosynthesis were performed in the CC and MLO projections. CLINICAL: Routine screening. Patient has no complaints. She reports a 25 pound weight loss. No personal history of cancer. No family history of breast cancer. COMPARISONS: Comparison is made to exams dated: 06/27/2020, 06/11/2017, 10/25/2016 [facility], and 10/10/2016 [facility]. BREAST TISSUE:The tissue of both breasts is [...] results. Electronically signed by: Nereyda person/barb:11/06/2023 11:38:22 Director Of Market Analysis(s): RT Lisa(Batool)(M), [facility] letter sent: Additional Imaging Reading location: [facility] BI-RADS: 0 Additional Imaging Evaluation Needed [...] made to exams dated: 06/27/2020, 06/11/2017, 10/25/2016 [facility], and 10/10/2016 [facility]. BREAST TISSUE:The tissue of both breasts is [...] signed by: Nereyda Manrique M.D. ab/barb:11/06/2023 11:38:22 Director Of Market Analysis(s): RT Lisa(R)(M), [facility] letter sent: Additional Imaging Reading location: [facility] BI-RADS: 0 Additional Imaging Evaluation Needed Susan Huffman BELL HOLE DIGGER, AERONAUTICAL DESIGN ENGINEER IMG MAMMO ORDER MICHAELA Final Result from Last 3 Months or Most Recently Relevant to Health Maintenance Insurance [facility] Care Teams High Tension Tester Relationship Specialty Start Date End Date Susan Huffman APRN, AERONAUTICAL DESIGN ENGINEER [address] [place] [address] PCP - General Advanced Practice Nurse 11/06/23
--- OUTSIDE RECORDS SUMMARY | 2024-11-07 09:28 | XMS_ITS | Clinical Summary ---
Author Organization [facility] [address] [place] [address] Care Team Providers Care Book Canvasser Name Role Phone No, Physician Primary Care Provider Allergies No known active allergies Medications No [...] on file Legal Sex Female 10:14 AM DETECTIVE HOMICIDE SQUAD Gender Identity Not on file Sexual Orientation Not on file Occupation Industry Job Start Date Job End Date [employer] Not on file Not on file Not on fi le Obstetrics History Last Filed Vital Signs Vital Sign Reading Time Taken Comments Blood Pressure 109/77 11/30/2020 3:30 PM CDT Pulse 91 11/30/2020 3:30 PM CDT Temperature 36.8 C (98.2 F) 04/17/2020 10:15 AM DETECTIVE HOMICIDE SQUAD Respiratory Rate 17 04/17/2020 10:15 AM DETECTIVE HOMIC[employer]QUAD Oxygen Saturation 99% 04/17/2020 10:15 AM DETECTIVE HOMICIDE SQUAD Inhaled Oxygen Concentration - - Weight 63 kg (139 lb) 11/30/2020 3:30 PM CDT Height 158.8 cm (5' 2.5) 11/30/2020 3:30 PM CDT Body Mass Index 25.02 11/30/2020 3:30 PM CDT Plan of Treatment Not on file Care Teams Book Canvasser Relationship Specialty Start Date End Date No, Physician PCP - General 04/17/20
== END 2024-11-07 09:45 | disposition home or self-care (01) ==
PROVIDERS: Emergency Provider Internal Medicine Critical Care Medicine; PCP Nurse Practitioner Family
DX: S61.411A Laceration without foreign body of right hand, initial encounter (principal); X78.0XXA Intentional self-harm by sharp glass, initial encounter
CPT/HCPCS: 12001; 99282